=== PATIENT | female | born 1980 | race Caucasian/White ===

== ENCOUNTER 2016-06-26 22:06 | Emergency (ER) | payer MEDICAID, SELFPAY ==
--- NOTE | 2016-06-26 23:03 | RAD ---
TWO VIEW CHEST: 06/26/16 HISTORY: Chest pain. The lung walker are clear. Heart and mediastinum appear normal. Osseous structures are unremarkable. IMPRESSION: Unremarkable chest pain. POS: [facility]
[2016-06-26] MEDS ORDERED: Azithromycin 250 MG TAB ONE (23:25)
[2016-06-26] MEDS ORDERED: Ventolin HFA Inhaler 60 PUFF INHALER ONE (23:26)
== END 2016-06-26 23:45 | disposition home or self-care (01) ==
LOC: MADERS 22:06
DX: J40 Bronchitis, not specified as acute or chronic (principal); J44.9 Chronic obstructive pulmonary disease, unspecified; F31.9 Bipolar disorder, unspecified; F17.210 Nicotine dependence, cigarettes, uncomplicated
CPT/HCPCS: 71020; 93005; 94640; J7620

== ENCOUNTER 2016-07-08 08:13 | Emergency (ER) | payer MEDICAID, SELFPAY ==
[2016-07-08] MEDS ORDERED: Phenergan/Codeine 10-6.25mg/5ml UDCUP ONE (09:42)
[2016-07-08] MEDS ORDERED: Acetaminophen/Codeine 30-300mg Tablet ONE (09:42)
[2016-07-08] MEDS ORDERED: cefTRIAXone\\ROCEPHIN 1 GM VIAL ONE (09:43)
[2016-07-08] MEDS ORDERED: Cephalexin 500 MG CAP ONE (09:43)
[2016-07-08] MEDS ORDERED: Naproxen 500 MG TAB ONE (09:43)
[2016-07-08] MEDS ORDERED: Lidocaine 1% 20 ML MDV ONE (09:43)
== END 2016-07-08 10:13 | disposition home or self-care (01) ==
LOC: MADERS 08:13
DX: H66.92 Otitis media, unspecified, left ear (principal); J06.9 Acute upper respiratory infection, unspecified; J44.9 Chronic obstructive pulmonary disease, unspecified; F17.210 Nicotine dependence, cigarettes, uncomplicated
CPT/HCPCS: 96372; J0696; J1040; J2001

== ENCOUNTER 2017-01-01 09:17 | Emergency (ER) | payer MEDICAID, OTHER ==
[2017-01-01] MEDS ORDERED: Ketorolac Tromethamine 60 MG/2 ML VIAL ONE (09:46)
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
== END 2017-01-01 10:33 | disposition home or self-care (01) ==
LOC: MADERS 09:17
DX: S00.83XA Contusion of other part of head, initial encounter (principal); K02.9 Dental caries, unspecified; J44.9 Chronic obstructive pulmonary disease, unspecified; F17.210 Nicotine dependence, cigarettes, uncomplicated; X58.XXXA Exposure to other specified factors, initial encounter
CPT/HCPCS: 70110; 96372; J1885

== ENCOUNTER 2017-10-27 16:59 | Emergency (ER) | payer OTHER, SELFPAY | END 2017-10-27 17:50 | disposition left against medical advice (07) | LOC: MADERS 16:59 | DX: Z53.21 Procedure and treatment not carried out due to patient leaving prior to being seen by health care provider (principal) ==

== ENCOUNTER 2023-04-07 15:07 | Emergency (ER) | payer OTHER ==
[2023-04-07] MEDS ORDERED: Ibuprofen 800 MG TAB ONE (15:42)
== END 2023-04-07 16:55 | disposition home or self-care (01) ==
LOC: MADERS 15:07
DX: S82.142A Displaced bicondylar fracture of left tibia, initial encounter for closed fracture (principal); E03.9 Hypothyroidism, unspecified; E78.00 Pure hypercholesterolemia, unspecified; F17.210 Nicotine dependence, cigarettes, uncomplicated; W18.30XA Fall on same level, unspecified, initial encounter